=== PATIENT | male | born 1970 | race African-American/Black ===

== ENCOUNTER 2019-04-19 22:19 | Emergency (ER) | payer SELFPAY ==
[~2019-04-19] VITALS: Ht 167.6 cm; Wt 61.2 kg
[2019-04-19 22:25] VITALS: BP 145/82
[2019-04-19] MEDS ORDERED: oxyCODONE HCL/Acetaminophen 5/325mg PO ONE (23:15)
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
[2019-04-20] MEDS ORDERED: NORCO 5-325 TA1 EACH ORAL (00:53)
[2019-04-20] MEDS ORDERED: IBUPROFEN600 MG ORAL (00:53)
[2019-04-20 00:55] VITALS: BP 145/82
--- NOTE | 2019-04-20 11:12 | Diagnostic Imaging Report ---
Indication: Forearm painPain Findings: 2 views of the right forearm were obtained. No acute fractures, malalignment, erosions or periostitis are identified. . Soft tissues are unremarkable. Impression: Negative for acute injury
--- NOTE | 2019-04-20 11:14 | Diagnostic Imaging Report ---
Indication: Right hand pain Findings: 3 views of the right hand were obtained. There is a somewhat poorly demonstrated fracture involving the neck and head of the second metacarpal with overlying soft tissue swelling. This is likely acute. No other fractures are identified. IMPRESSION: Impacted fracture of the second metacarpal neck and head.
== END 2019-04-20 00:55 | disposition home or self-care (01) ==
LOC: EDSEX 22:19 → EMR 22:40
DX: S62.254A Nondisplaced fracture of neck of first metacarpal bone, right hand, initial encounter for closed fracture (principal); J45.909 Unspecified asthma, uncomplicated; F17.200 Nicotine dependence, unspecified, uncomplicated; F12.10 Cannabis abuse, uncomplicated; W22.09XA Striking against other stationary object, initial encounter; Y92.810 Car as the place of occurrence of the external cause
CPT/HCPCS: 29125; 99283